=== PATIENT | male | born 1950 | race Hispanic/Latino ===

== ENCOUNTER 2021-04-27 13:12 | Emergency (ER) | payer OTHER ==
[2021-04-27] MEDS ORDERED: tiZANidine TAB 4 MG TAB PO ONE (16:20)
[2021-04-27] MEDS ORDERED: KETOROLAC 30 MG/1 ML INJ IM ONE (16:20)
--- NOTE | 2021-04-27 16:53 | XRay Report ---
XR spine lumbosacral 2-3V INDICATION / CLINICAL INFORMATION: low back pain after lifting. COMPARISON: None available. FINDINGS: BONES/JOINT(S): No acute fracture or subluxation. Mild generalized spondylosis and minimal left conve x scoliosis with the apex at the L3 level. SOFT TISSUES: Aortic bilateral iliac stent graft is present. ADDITIONAL FINDINGS: None. Signer Name: Mau Richter MD Signed: 04/27/2021 4:49 PM Workstation Name: [id number]
--- NOTE | 2021-04-27 17:10 | Emergency Department Report ---
ED Back Pain/Injury HPI - General Chief Complaint: Back Pain/Injury Stated Complaint: BACK PAIN Time Seen by Provider: 04/27/21 16:20 Source: patient Limitations: No Limitations - History of Present Illness Initial Comments: Patient is a 70-year-old male presents emergency room complaints of low back pain that began yesterday. Patient states that he lifted an old TV by himself and states that he did not use his legs and believes he used his back instead. He denies falling to the ground. He states his pain is increased with movement. He denies any numbness, weakness, bowel or bladder continence, CP, SOB. PMHx HTN, DM, aortic aneurysm. No allergies to medications. He states he does not feel like when he had a aneurysm he states it feels like a pulled muscle. - Related Data Previous Rx's Medication Instructions Recorded Last Taken Type Cyclobenzaprine HCl [Flexeril 5mg] 5 mg PO TID PRN #15 tablet 08/21/14 Unknown Rx Meloxicam [Mobic] 7.5 mg PO QDAY PRN #14 tablet 04/27/21 Unknown Rx tiZANidine [Zanaflex 4mg TAB] 4 mg PO Q8HR PRN #12 tablet 04/27/21 Unknown Rx Allergies Allergy/AdvReac Type Severity Reaction Status Date / Time No Known Allergies Allergy Verified 08/21/14 09:35 ED Review of Systems ROS: Stated complaint: BACK PAIN Other details as noted in HPI Comment: All other systems reviewed and negative ED Past Medical Hx - Past Medical History Previous Medical History?: Yes Hx Hypertension: Yes Hx Diabetes: Yes - Surgical History Past Surgical History?: Yes Hx Coronary Stent: Yes - Social History Smoking Status: Never Smoker Substance Use Type: None - Medications Home Medications: Home Medications Medication Instructions Recorded Confirmed Last Taken Type Cyclobenzaprine HCl [Flexeril 5mg] 5 mg PO TID PRN #15 tablet 08/21/14 Unknown Rx Meloxicam [Mobic] 7.5 mg PO QDAY PRN #14 tablet 04/27/21 Unknown Rx tiZANidine [Zanaflex 4mg TAB] 4 mg PO Q8HR PRN #12 tablet 04/27/21 Unknown Rx ED Physical Exam - General Limitations: No Limitations General appearance: alert, in no apparent distress - Head Head exam: Present: atraumatic, normocephalic - Eye Eye exam: Present: normal appearance - ENT ENT exam: Present: mucous membranes moist - Neck Neck exam: Present: normal inspection, full ROM. Absent: tenderness, meningismus - Respiratory Respiratory exam: Present: normal lung sounds bilaterally. Absent: respiratory distress, wheezes, rales, rhonchi, stridor, chest wall tenderness, accessory muscle use, decreased breath sounds, prolonged expiratory - Cardiovascular Cardiovascular Exam: Present: regular rate, normal rhythm, normal heart sounds. Absent: systolic murmur, diastolic murmur, rubs, gallop - Back Exam Back exam: Present: normal inspection, full ROM. Absent: paraspinal tenderness, vertebral tenderness - Neurological Exam Neurological exam: Present: alert, oriented X3, CN II-XII intact, normal gait. Absent: motor sensory deficit - Psychiatric Psychiatric exam: Present: normal affect, normal mood - Skin Skin exam: Present: warm, dry, intact ED Course Vital Signs 04/27/21 16:40 Respiratory 16 Rate ED Medical Decision Making - Radiology Data Radiology results: report reviewed Ordering Physician: JR CRONIN Date of Service: 04/27/21 Procedure(s): XR spine lumbosacral 2-3V Accession Number(s): [id number] cc: JR CRONIN Fluoro Time In Minutes: XR spine lumbosacral 2-3V INDICATION / CLINICAL INFORMATION: low back pain after lifting. COMPARISON: None available. FINDINGS: BONES/JOINT(S): No acute fracture or subluxation. Mild generalized spondylosis and minimal left convex scoliosis with the apex at the L3 level. SOFT TISSUES: Aortic bilateral iliac stent graft is present. ADDITIONAL FINDINGS: None. Signer Name: Mau Richter MD Signed: 04/27/2021 4:49 PM Workstation Name: [id number] Transcribed By: SANTIAGO Dictated By: Mau Richter MD Electronically Authenticated By: Mau Richter MD Signed Date/Time: 04/27/211648 DD/ 47 TD/TT: Print - Medical Decision Making Patient is a 70-year-old male presents emergency room complaints of low back pain that began yesterday. Patient states that he lifted an old TV by himself and states that he did not use his legs and believes he used his back instead. He denies falling to the ground. He states his pain is increased with movement. He denies any numbness, weakness, bowel or bladder continence, CP, SOB. PMHx HTN, DM, aortic aneurysm. No allergies to medications. He states he does not feel like when he had a aneurysm he states it feels like a pulled muscle. Vitals recorded on patient's paper chart are stable, advised nurse to chart and computer system. On exam patient has no midline or paraspinal C-spine, T-spine, L-spine tender palpation, no step-offs, no deformities, no focal neuro deficits. X-ray lumbar spine: BONES/JOINT(S): No acute fracture or subluxation. Mild generalized spondylosis and minimal left convex scoliosis with the apex at the L3 level. SOFT TISSUES: Aortic bilateral iliac stent graft is present. ADDITIONAL FINDINGS: None. Patient given medications while in the emergency department with improvement of his symptoms. Patient is ambulatory without difficulty, he has no focal neuro deficits. Patient given prescription for medication. Discussed the importance of outpatient follow-up. Discussed very strict return precautions in detail with patient he verbalized understanding. Advised patient Please take medication as prescribed as needed. May use ice pack, heating pad, rest. Follow-up with your primary care doctor. Follow-up with a neurosurgeon. Return to emergency room for any new or symptoms. Critical care attestation.: If time is entered above; I have spent that time in minutes in the direct care of this critically ill patient, excluding procedure time. ED Disposition Clinical Impression: Back pain Qualifiers: Back pain location: low back pain Chronicity: acute Back pain laterality: bilateral Sciatica presence: without sciatica Qualified Code(s): M54.50 - Low back pain, unspecified Disposition: 01 HOME / SELF CARE / HOMELESS Is pt being admited?: No Does the pt Need Aspirin: No Condition: Stable Instructions: Muscle Strain, [id number] Additional Instructions: Please take medication as prescribed as needed. May use ice pack, heating pad, rest. Follow-up with your primary care doctor. Follow-up with a neurosurgeon. Return to emergency room for any new or symptoms. Prescriptions: Meloxicam [Mobic] 7.5 mg PO QDAY PRN #14 tablet PRN Reason: pain tiZANidine [Zanaflex 4mg TAB] 4 mg PO Q8HR PRN #12 tablet PRN Reason: muscle spasm/pain Referrals: your, primary care doctor [Other] - 2-3 Days RADHA MONTOYA II, MD [Staff Physician] - 2-3 Days Time of Disposition: 17:08 Print Language: KOREAN
== END 2021-04-27 18:32 | disposition home or self-care (01) ==
LOC: ED 13:12
DX: M54.50 Low back pain, unspecified (principal); I10 Essential (primary) hypertension; E11.8 Type 2 diabetes mellitus with unspecified complications; Z98.890 Other specified postprocedural states
CPT/HCPCS: 72100; 96372; 99283; J1885